=== PATIENT | female | born 1940 | race Caucasian/White ===

== ENCOUNTER 2016-03-28 10:50 | Emergency (ER) | payer MEDICARE ==
[2016-03-28 11:04] VITALS: TEMP 97.6; BMI 23.6
[2016-03-28] MEDS ORDERED: DIPHTHERIA AND TETANUS (ADULT) 0.5 ML SYR IM ONE (11:13)
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
[2016-03-28] MEDS ORDERED: SILVER SULFADIAZINE 1% CREAM 20 GM TUBE TOP ONE (11:19)
[2016-03-28] MEDS ORDERED: IBUPROFEN 800 MG TAB PO ONE (11:19)
[2016-03-28] MEDS ORDERED: HYDROCODONE 5 MG/ACETAMIN 325 MG TAB PO ONE (11:19)
[2016-03-28 11:54] LABS: LEUKOCYTES/URINE NEG (NEGATIVE); NITRITE/URINE NEG (NEGATIVE); RBC/URINE 0-2 (0-5); URINE OCCULT BLOOD NEG (NEG/TRACE); WBC/URINE 0-2 (0-5)
[2016-03-28 12:05] VITALS: BP 152/74; PULSE 64
== END 2016-03-28 12:25 | disposition home or self-care (01) ==
LOC: ED 10:50
DX: T24.011A Burn of unspecified degree of right thigh, initial encounter (principal); X10.0XXA Contact with hot drinks, initial encounter; Y93.9 Activity, unspecified; Z23 Encounter for immunization
CPT/HCPCS: 81001; 90471; 90714; 99283; A9270; J3490